=== PATIENT | female | born 1990 | race American Indian/Alaskan Native ===

== ENCOUNTER 2020-01-17 12:48 | Inpatient (IN) | payer SELFPAY ==
[2020-01-17] MEDS ORDERED: Sodium Chloride 0.9% 10 ML Syringe FLUSH PRN (14:12)
[2020-01-17] MEDS ORDERED: Misoprostol 200 MCG Tab PO PRN (14:12)
[2020-01-17] MEDS ORDERED: Lidocaine 1% 50 ML MDV INJECT PRN (14:12)
[2020-01-17] MEDS ORDERED: Carboprost Tromethamine 250 MCG/1 ML Amp IM PRN (14:12)
[2020-01-17] MEDS ORDERED: Tranexamic Acid 1,000 MG in Sodium Chloride 0.9% 100 ML IV PRN (14:12)
[2020-01-17] MEDS ORDERED: Terbutaline 1 MG/ML SDV SUBCUT PRN (14:12)
[2020-01-17] MEDS ORDERED: Sodium Chloride 0.9% 10 ML SDV IV PRN (14:12)
[2020-01-17] MEDS ORDERED: Methylergonovine 0.2 MG/1 ML Amp IM PRN (14:12)
[2020-01-17] MEDS ORDERED: Butorphanol 1 MG/ML SDV IVPUSH PRN (14:12)
[2020-01-17] MEDS ORDERED: Water For Irrigation,Sterile 1,000 ML Container IRR PRN (14:12)
[2020-01-17] MEDS ORDERED: Ondansetron 4 MG/2 ML SDV IVPUSH PRN (14:12)
[2020-01-17] MEDS ORDERED: Sodium Chloride 0.9% 2.5 ML Syringe FLUSH PRN (14:12)
[2020-01-17] MEDS ORDERED: Oxytocin/0.9 % Sodium Chloride 30 UNIT/500 ML BAG IV SCH ×2 (14:15)
[2020-01-17] MEDS ORDERED: Misoprostol 50 MCG (1/2 of 100 MCG) Tab PO ONE (14:19)
--- NOTE | 2020-01-17 16:40 | PCM.LDHP ---
L&D History of Present Illness - General Date of Service: 01/17/20 Admit Problem/Dx: Patient Status Order with Admit Dx/Problem 01/17/20 13:32 Patient Status [ADT] Routine 01/17/20 14:15 Patient Status [ADT] Routine Admission Diagnosis/Problem Admission Diagnosis/Problem 01/17/20 16:35 29yo EDC 01/14/2020 40 3/7wks. A+,RI, GBS neg. Comes today SROM at 0900 today clear fluid. 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: Social & Family History - Family History Family Medical History: Noncontributory - Tobacco Use Smoking Status *Q: Current Every Day Smoker Years of Tobacco use: 13 Packs/Tins Daily: 1 Second Hand Smoke Exposure: Yes - Caffeine Use Caffeine Use: Reports: Coffee - Recreational Drug Use Recreational Drug Use: No H&P Review of Systems - Review of Systems: Review Of Systems: See Below General: Reports: No Symptoms HEENT: Reports: No Symptoms Pulmonary: Reports: No Symptoms Cardiovascular: Reports: No Symptoms Gastrointestinal: Reports: No Symptoms Genitourinary: Reports: No Symptoms Musculoskeletal: Reports: No Symptoms Skin: Reports: No Symptoms Psychiatric: Reports: No Symptoms Neurological: Reports: No Symptoms Hematologic/Lymphatic: Reports: No Symptoms Immunologic: Reports: No Symptoms L&D Exam - Exam Exam: See Below - Vital Signs Weight: 124.738 kg - OB Specific Contraction Intensity: Mild Movement: Active Heart Tones: Present Heart Rate (FHR) Variability: Moderate (6-25 bmp) Presentation: Vertex Estimated Weight: 3700 - Moody Score Moody Score Cervix Position: Posterior Moody Score Consistency: Soft Moody Score Effacement: 51-70% Moody Score Dilation: 1-2 cm Moody Score Infant's Station: -2 Moody Score Total: 6 - Exam General: Alert, Oriented, Cooperative, Mild Distress HEENT: Hearing Intact Lungs: Clear to Auscultation, Normal Respiratory Effort Cardiovascular: Regular Rate, Regular Rhythm GI/Abdominal Exam: Soft, Non-Tender Rectal Exam: Deferred Genitourinary: Normal external exam, Normal bimanual exam, Cervical dilitation, Cervical fluid Back Exam: Normal Inspection, Full Range of Motion Extremities: Normal Inspection, Normal Range of Motion, Non-Tender, No Pedal Edema Skin: Warm, Dry, Intact Neurological: Cranial Nerves Intact, Strength Equal Bilateral, Normal Gait, Normal Speech, Normal Tone, Sensation Intact Psychiatric: Alert, Normal Affect, Normal Mood - Patient Data Lab Results Last 24 hrs: Laboratory Results - last 24 hr 01/17/20 01/17/20 01/17/20 Range/Units 13:43 14:35 14:35 WBC 9.32 (4.0-11.0) K/uL RBC 4.16 L (4.30-5.90) M/uL Hgb 12.5 (12.0-16.0) g/dL Hct 37.1 (36.0-46.0) % MCV 89.2 (80.0-98.0) fL MCH 30.0 (27.0-32.0) pg MCHC 33.7 (31.0-37.0) g/dL RDW Std Deviation 43.0 (28.0-62.0) fl RDW Coeff of Gibson 13 (11.0-15.0) % Plt Count 258 (150-400) K/uL MPV 11.30 (7.40-12.00) fL Nucleated RBC % 0.0 /100WBC Nucleated RBCs # 0 K/uL Membrane Rupture POSITIVE Blood Type A POSITIVE Antibody Screen NEGATIVE Result Diagrams: 01/17/20 14:35 - Problem List (1) Supervision of normal IUP (intrauterine ) in primigravida SNOMED Code(s): 51423481, 795408060, 257922309, [id number] ICD Code: Z34.00 - ENCNTR FOR SUPRVSN OF NORMAL FIRST , UNSP TRIMESTER Status: Acute Priority: High Current Visit: Yes Qualifiers: Trimester: third trimester Qualified Code(s): Z34.03 - Encounter for supervision of normal first , third trimester Problem List Initiated/Reviewed/Updated: Yes Orders Last 24hrs: Active Orders 24 hr Category Date Time Status Patient Status [ADT] Routine ADT 01/17/20 13:32 Active Patient Status [ADT] Routine ADT 01/17/20 14:15 Active Bedrest Bathroom Privileges [RC] ASDIRECTED Care 01/17/20 14:15 Active Communication Order [RC] ASDIRECTED Care 01/17/20 14:15 Active Communication Order [RC] ASDIRECTED Care 01/17/20 14:15 Active Communication Order [RC] ASDIRECTED Care 01/17/20 14:15 Active Heart Tones [RC] CONTINUOUS Care 01/17/20 14:15 Active Non Stress Test [RC] PER UNIT ROUTINE Care 01/17/20 13:32 Active Non Stress Test [RC] PER UNIT ROUTINE Care 01/17/20 14:15 Active May Shower [RC] ASDIRECTED Care 01/17/20 14:15 Active Notify Provider [RC] PRN Care 01/17/20 14:15 Active Notify Provider [RC] PRN Care 01/17/20 14:15 Active Notify Provider [RC] PRN Care 01/17/20 14:15 Active Notify Provider [RC] STAT Care 01/17/20 14:15 Active Oxygen Therapy [RC] ASDIRECTED Care 01/17/20 14:15 Active Up ad [place] [RC] ASDIRECTED Care 01/17/20 13:32 Active Up ad [place] [RC] ASDIRECTED Care 01/17/20 14:15 Active Vaginal Exam [RC] Click to Edit Care 01/17/20 13:32 Active Vaginal Exam [RC] PRN Care 01/17/20 14:15 Active Vaginal Exam [RC] PRN Care 01/17/20 14:15 Active Vital Signs [RC] PER UNIT ROUTINE Care 01/17/20 13:32 Active Vital Signs [RC] PER UNIT ROUTINE Care 01/17/20 14:15 Active Vital Signs [RC] PER UNIT ROUTINE Care 01/17/20 14:15 Active RPR (SYPHILIS SERO) W/ RFLX [REF] Routine Lab 01/17/20 14:35 Received Butorphanol [Stadol] Med 01/17/20 14:12 Active 1 mg IVPUSH Q1H PRN Carboprost Tromethamine [Hemabate DS] Med 01/17/20 14:12 Active 250 mcg IM ASDIRECTED PRN Lactated Ringers [Ringers, Lactated] 1,000 ml Med 01/17/20 14:15 Active IV ASDIRECTED Lidocaine 1% [Xylocaine 1%] Med 01/17/20 14:12 Active 50 ml INJECT ONETIME PRN Methylergonovine [Methergine] Med 01/17/20 14:12 Active 0.2 mg IM ASDIRECTED PRN Nalbuphine [Nubain] Med 01/17/20 14:12 Active 10 mg IVPUSH Q1H PRN Ondansetron [Zofran] Med 01/17/20 14:12 Active 4 mg IVPUSH Q4H PRN Oxytocin/0.9 % Sodium Chloride [Oxytocin 30 Unit/500 ML Med 01/17/20 14:15 Active -NS] 30 unit in 500 ml IV TITRATE Oxytocin/0.9 % Sodium Chloride [Oxytocin 30 Unit/500 ML Med 01/17/20 14:15 Active -NS] 30 unit in 500 ml IV TITRATE Sodium Chloride 0.9% [Normal Saline] Med 01/17/20 14:12 Active 10 ml IV ASDIRECTED PRN Sodium Chloride 0.9% [Saline Flush] Med 01/17/20 14:12 Active 10 ml FLUSH ASDIRECTED PRN Sodium Chloride 0.9% [Saline Flush] Med 01/17/20 14:12 Active 2.5 ml FLUSH ASDIRECTED PRN Terbutaline [Brethine] Med 01/17/20 14:12 Active 0.25 mg SUBCUT ASDIRECTED PRN Tranexamic Acid [Cyklokapron] 1,000 mg Med 01/17/20 14:12 Active Sodium Chloride 0.9% [Normal Saline] 100 ml IV ONETIME Water For Irrigation,Sterile [Sterile Water for Med 01/17/20 14:12 Active Irrigation] 1,000 ml IRR ASDIRECTED PRN miSOPROStoL [Cytotec] Med 01/17/20 14:12 Active 200 mcg PO ONETIME PRN Scalp Electrode [WOMSER] Per Unit Routine Oth 01/17/20 14:15 Ordered Medication Administration Instruction [OM.PC] Q3H Oth 01/17/20 14:15 Ordered Peripheral IV Insertion Adult [OM.PC] Routine Oth 01/17/20 14:15 Ordered Resuscitation Status Routine Resus Stat 01/17/20 13:32 Ordered Medication Orders Butorphanol Tartrate (Stadol) 1 mg IVPUSH Q1H PRN PRN Reason: Pain Carboprost Tromethamine (Hemabate Ds) 250 mcg IM ASDIRECTED PRN PRN Reason: Post Hemorrhage Tranexamic Acid 1,000 mg/ (Sodium Chloride) 110 mls @ 660 mls/hr IV ONETIME PRN PRN Reason: Bleeding Oxytocin/Sodium Chloride (Oxytocin 30 Unit/500 Ml-Ns) 30 unit in 500 mls @ 2 mls/hr IV TITRATE DONNA; Protocol Lactated Ringer's (Ringers, Lactated) 1,000 mls @ 150 mls/hr IV ASDIRECTED DONNA Oxytocin/Sodium Chloride (Oxytocin 30 Unit/500 Ml-Ns) 30 unit in 500 mls @ 999 mls/hr IV TITRATE DONNA Lidocaine HCl (Xylocaine 1%) 50 ml INJECT ONETIME PRN PRN Reason: Laceration repair Methylergonovine Maleate (Methergine) 0.2 mg IM ASDIRECTED PRN PRN Reason: Post Hemorrhage Misoprostol (Cytotec) 200 mcg PO ONETIME PRN PRN Reason: Post Hemorrhage Nalbuphine HCl (Nubain) 10 mg IVPUSH Q1H PRN PRN Reason: Pain (severe 7-10) Ondansetron HCl (Zofran) 4 mg IVPUSH Q4H PRN PRN Reason: Nausea/Vomiting Sodium Chloride (Saline Flush) 10 ml FLUSH ASDIRECTED PRN PRN Reason: Keep Vein Open Sodium Chloride (Saline Flush) 2.5 ml FLUSH ASDIRECTED PRN PRN Reason: Keep Vein Open Sodium Chloride (Normal Saline) 10 ml IV ASDIRECTED PRN PRN Reason: IV Use Sterile Water (Sterile Water For Irrigation) 1,000 ml IRR ASDIRECTED PRN PRN Reason: delivery Terbutaline Sulfate (Brethine) 0.25 mg SUBCUT ASDIRECTED PRN PRN Reason: Tacysystole Assessment/Plan Comment:: SROM A: 29yo EDC 01/14/2020 40 3/7wks. A+,RI, GBS neg. Comes today SROM at 0900 today clear fluid. P: Admit, cytotec to pitocin, pain meds prn, Anticipate . Dr Bonner updated.
[2020-01-18] MEDS: Lactated Ringers 1,000 ML IV SCH ×3 (01:07→12:34)
[2020-01-18] MEDS: Nalbuphine 10 MG/1 ML Vial IVPUSH PRN ×2 (07:15→09:49)
[2020-01-18] MEDS ORDERED: fentaNYL 100 MCG/2 ML SDV ONE ×2 (11:18→12:19)
[2020-01-18] MEDS ORDERED: Ropivacaine HCl/PF 100 ML ONE (11:19)
[2020-01-18] MEDS ORDERED: Ropivacaine 0.2% PF 2 MG/ML 20 ML SDV ONE ×2 (11:19→12:20)
--- NOTE | 2020-01-18 12:27 | PCM.PREANE ---
Preanesthetic Assessment - Procedure Proposed Procedure: REBECA - Anesthesia/Transfusion/Family Hx Anesthesia History: Prior Anesthesia Without Reaction Family History of Anesthesia Reaction: No Transfusion History: No Prior Transfusion(s) Intubation History: Unknown - Review of Systems General: No Symptoms Pulmonary: No Symptoms Cardiovascular: No Symptoms Gastrointestinal: No Symptoms Neurological: No Symptoms Other: Reports: Anxiety - Physical Assessment Height: 1.68 m Weight: 124.738 kg ASA Class: 3 Mental Status: Alert & Oriented x3 Airway Class: Mallampati = 2 Dentition: Reports: Normal Dentition Thyro-Mental Finger Breadths: 3 Mouth Opening Finger Breadths: 3 ROM/Head Extension: Full Lungs: Clear to Auscultation Cardiovascular: Regular Rate - Lab Values: Laboratory Last Values WBC 9.32 K/uL (4.0-11.0) 01/17/20 14:35 RBC 4.16 M/uL (4.30-5.90) L 01/17/20 14:35 Hgb 12.5 g/dL (12.0-16.0) 01/17/20 14:35 Hct 37.1 % (36.0-46.0) 01/17/20 14:35 MCV 89.2 fL (80.0-98.0) 01/17/20 14:35 MCH 30.0 pg (27.0-32.0) 01/17/20 14:35 MCHC 33.7 g/dL (31.0-37.0) 01/17/20 14:35 RDW Std Deviation 43.0 fl (28.0-62.0) 01/17/20 14:35 RDW Coeff of Gibson 13 % (11.0-15.0) 01/17/20 14:35 Plt Count 258 K/uL (150-400) 01/17/20 14:35 MPV 11.30 fL (7.40-12.00) 01/17/20 14:35 Nucleated RBC % 0.0 /100WBC 01/17/20 14:35 Nucleated RBCs # 0 K/uL 01/17/20 14:35 Membrane Rupture POSITIVE 01/17/20 13:43 Blood Type A POSITIVE 01/17/20 14:35 Antibody Screen NEGATIVE 01/17/20 14:35 - Allergies Allergies/Adverse Reactions: Allergies Allergy/AdvReac Type Severity Reaction Status Date / Time No Known Allergies Allergy Verified 01/17/20 13:30 - Blood Blood Available: No Product(s) Available: None - Anesthesia Plan Pre-Op Medication Ordered: None - Acknowledgements Anesthesia Type Planned: Epidural Pt an Appropriate Candidate for the Planned Anesthesia: Yes Alternatives and Risks of Anesthesia Discussed w Pt/Guardian: Yes Pt/Guardian Understands and Agrees with Anesthesia Plan: Yes Additional Comments: Discussed. Landmarks very difficult to feel. Patient aware of potential difficulty. Acceptable candidate. 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 Smoking Status *Q: Current Every Day Smoker Tobacco Use Within Last Twelve Months: Cigarettes Second Hand Smoke Exposure: Yes Recreational Drug Use History: No - CURRENT (IN HOUSE) MEDS Current Meds: Current Medications Butorphanol Tartrate (Stadol) 1 mg IVPUSH Q1H PRN PRN Reason: Pain Carboprost Tromethamine (Hemabate Ds) 250 mcg IM ASDIRECTED PRN PRN Reason: Post Hemorrhage Tranexamic Acid 1,000 mg/ (Sodium Chloride) 110 mls @ 660 mls/hr IV ONETIME PRN PRN Reason: Bleeding Oxytocin/Sodium Chloride (Oxytocin 30 Unit/500 Ml-Ns) 30 unit in 500 mls @ 2 mls/hr IV TITRATE DONNA; Protocol Last Titration: 01/18/20 11:50 Dose: 10 munits/min, 10 mls/hr Lactated Ringer's (Ringers, Lactated) 1,000 mls @ 150 mls/hr IV ASDIRECTED DONNA Last Admin: 01/18/20 11:20 Dose: 150 mls/hr Oxytocin/Sodium Chloride (Oxytocin 30 Unit/500 Ml-Ns) 30 unit in 500 mls @ 999 mls/hr IV TITRATE DONNA Lidocaine HCl (Xylocaine 1%) 50 ml INJECT ONETIME PRN PRN Reason: Laceration repair Methylergonovine Maleate (Methergine) 0.2 mg IM ASDIRECTED PRN PRN Reason: Post Hemorrhage Misoprostol (Cytotec) 200 mcg PO ONETIME PRN PRN Reason: Post Hemorrhage Nalbuphine HCl (Nubain) 10 mg IVPUSH Q1H PRN PRN Reason: Pain (severe 7-10) Last Admin: 01/18/20 09:49 Dose: 10 mg Ondansetron HCl (Zofran) 4 mg IVPUSH Q4H PRN PRN Reason: Nausea/Vomiting Sodium Chloride (Saline Flush) 10 ml FLUSH ASDIRECTED PRN PRN Reason: Keep Vein Open Sodium Chloride (Saline Flush) 2.5 ml FLUSH ASDIRECTED PRN PRN Reason: Keep Vein Open Sodium Chloride (Normal Saline) 10 ml IV ASDIRECTED PRN PRN Reason: IV Use Sterile Water (Sterile Water For Irrigation) 1,000 ml IRR ASDIRECTED PRN PRN Reason: delivery Terbutaline Sulfate (Brethine) 0.25 mg SUBCUT ASDIRECTED PRN PRN Reason: Tacysystole Discontinued Medications Fentanyl (Sublimaze) Confirm Administered Dose 100 mcg .ROUTE .STK-MED ONE Stop: 01/18/20 11:19 Ropivacaine (Naropin 0.2%) Confirm Administered Dose 100 mls @ as directed .ROUTE .STK-MED ONE Stop: 01/18/20 11:20 Misoprostol (Cytotec) 50 mcg PO ONETIME ONE Stop: 01/17/20 14:20 Last Admin: 01/17/20 14:54 Dose: 50 mcg Ropivacaine (Naropin 0.2%) Confirm Administered Dose 20 ml .ROUTE .STK-MED ONE Stop: 01/18/20 11:20
--- NOTE | 2020-01-18 13:12 | PCM.SN ---
- Free Text/Narrative Note: Requested for REBECA, , 6cm, active labor, pain 10/10. Discussed, ? answered, permit signed. Fluid bolus in-progress. Epidural at L3-4. Pass 1: heme. Pass 2: Good DILEEP x2, unable to thread catheter. Pass 3: Good DILEEP with air/saline. Cath to 8cm. Occlusive drsg. TEST: negative. Bolus given: 8ml 0.2% Naropin + 100mcg fentanyl. Some relief on left side, essentially none in R groin area. Additional 3ml bolus given, pump on. No improvement. Offered to replace. Patient wished it to be replaced. Epidural at L2-3. Spaced ID'd on first pass with saline/air mix. Reconfirmed with 3ml saline. Cath to 8cm without issues. TEST dose: NEGATIVE. Occlusive drsg. Bolus with 8ml 0.2% Naropin + Fentanyl 100mcg over 8 minutes. Pain 1/10 post. Infusion on 15 minutes post bolus. VSS. Doing well.
[2020-01-18] MEDS ORDERED: Ampicillin 2 GM in Sodium Chloride 0.9% 100 ML IV ONE (14:41)
[2020-01-18] MEDS ORDERED: Ampicillin 1 GM in Sodium Chloride 0.9% 50 ML IV SCH (19:00)
[2020-01-18] MEDS ORDERED: Ibuprofen 400 MG Tab PO PRN (20:23)
[2020-01-18] MEDS ORDERED: Witch Hazel Medicated Pads 40/Jar TOP PRN (20:23)
[2020-01-18] MEDS ORDERED: Lanolin 100% Cream 7 GM Tube TOP PRN (20:23)
[2020-01-18] MEDS ORDERED: Acetaminophen 500 MG Tab PO PRN (20:23)
[2020-01-18] MEDS ORDERED: Bisacodyl 10 MG Supp RECTAL PRN (20:23)
[2020-01-18] MEDS ORDERED: Docusate Sodium 100 MG Cap PO PRN (20:23)
[2020-01-18] MEDS ORDERED: Benzocaine/Menthol 20%-0.5% Spray 78 GM Cannister TOP PRN (20:23)
[2020-01-18] MEDS ORDERED: oxyCODONE 5 MG Tab PO PRN (20:23)
[2020-01-18] MEDS: Ibuprofen 800 MG Tab PO PRN (20:37)
[2020-01-18] MEDS: Acetaminophen 500 MG Tab PO PRN (20:37)
--- NOTE | 2020-01-18 21:10 | OR ---
SURGEON: Joel Bonner MD DATE OF PROCEDURE: Ms. Mg is a primigravida. 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 She is admitted with spontaneous rupture of the membranes. At the time of admission, she was dilated 2 to 3 cm. The patient had responded to the Cytotec and Pitocin, and she progressed rather slowly. She had epidural anesthesia for labor analgesia. She later on required to place an IUPC to titrate the Pitocin adequately to have adequate contraction. However, when she had 6 cm, she rather progressed rapidly to complete, vertex, +0, and she commenced pushing. She brought the baby to a +2 position, and because of prolonged labor and the patient was exhausted and the epidural was making her pushing ineffective, I was consulted to evaluate the patient for vacuum extraction. Upon my arrival, the vital signs were stable and the heart rate was category I. Examination revealed the patient was complete-complete, vertex, and at +2 station and in my judgment deemed to be vacuumable. So after consulting with the patient and explaining the vacuum extraction to her, we proceeded to place the [place] vacuum extractions, and with the patient pushing and me pulling, we were able to guide the head down. However, I needed to do midline episiotomy to aid in the delivery. The vacuum extraction was successful. Day Trader had attended the delivery. However, when the fetus was delivered, cried immediately, and the placenta delivered spontaneous, complete, and intact and the midline episiotomy repaired with 3-0 Vicryl in layers without any problem. Estimated blood loss was 350 to 400 mL. heart rate was category 1 through the entire process of labor and delivery. There was no complication in the labor and the delivery process. HETAL / SUZANNE /[id number]
--- NOTE | 2020-01-19 07:14 | PCM48HPAN ---
Post Anesthesia Note - EVALUATION WITHIN 48HRS OF ANESTHETIC Vital Signs in Normal Range: Yes Patient Participated in Evaluation: Yes Respiratory Function Stable: Yes Airway Patent: Yes Cardiovascular Function Stable: Yes Hydration Status Stable: Yes Pain Control Satisfactory: Yes Nausea and Vomiting Control Satisfactory: Yes Mental Status Recovered: Yes Vital Signs: Last Vital Signs Temp 36.8 C 01/19/20 04:41 Pulse 111 H 01/19/20 04:41 Resp 15 01/19/20 04:41 BP 110/73 01/19/20 04:41 Pulse Ox 98 01/19/20 04:41
[2020-01-19] MEDS: Ibuprofen 800 MG Tab PO PRN ×2 (08:06→15:07)
[2020-01-19] MEDS: Acetaminophen 500 MG Tab PO PRN ×2 (08:07→15:09)
--- NOTE | 2020-01-19 08:23 | PCM.PNPP ---
- General Info Date of Service: 01/19/20 Admission Dx/Problem (Free Text): Patient Status Order with Admit Dx/Problem 01/17/20 13:32 Patient Status [ADT] Routine 01/17/20 14:15 Patient Status [ADT] Routine Admission Diagnosis/Problem Admission Diagnosis/Problem 01/17/20 16:35 29yo EDC 01/14/2020 40 3/7wks. A+,RI, GBS neg. Comes today SROM at 0900 today clear fluid. Functional Status: Reports: Pain Controlled - Review of Systems General: Reports: No Symptoms HEENT: Reports: No Symptoms Pulmonary: Reports: No Symptoms Cardiovascular: Reports: No Symptoms Gastrointestinal: Reports: No Symptoms Genitourinary: Reports: No Symptoms Musculoskeletal: Reports: No Symptoms Skin: Reports: No Symptoms Neurological: Reports: No Symptoms Psychiatric: Reports: No Symptoms - General Info Date of Service: 01/19/20 - Patient Data Vital Signs - Most Recent: Last Vital Signs Temp 98.3 F 01/19/20 04:41 Pulse 111 H 01/19/20 04:41 Resp 15 01/19/20 04:41 BP 110/73 01/19/20 04:41 Pulse Ox 98 01/19/20 04:41 Weight - Most Recent: 275 lb Med Orders - Current: Current Medications Acetaminophen (Tylenol Extra Strength) 500 mg PO Q4H PRN PRN Reason: Pain Acetaminophen (Tylenol Extra Strength) 1,000 mg PO Q4H PRN PRN Reason: Pain Last Admin: 01/19/20 08:07 Dose: 1,000 mg Benzocaine/Menthol (Dermoplast Pain Relief 20%-0.5% [place]) 78 gm TOP ASDIRECTED PRN PRN Reason: Perineal Comfort Measure Bisacodyl (Dulcolax) 10 mg RECTAL ONETIME PRN PRN Reason: Constipation Docusate Sodium (Colace) 100 mg PO BID PRN PRN Reason: Constipation Last Admin: 01/19/20 08:06 Dose: 100 mg Emollient Ointment (Lansinoh Hpa) 0 gm TOP ASDIRECTED PRN PRN Reason: Sore Nipples Last Admin: 01/19/20 08:07 Dose: 7 gram Ibuprofen (Motrin) 400 mg PO Q4H PRN PRN Reason: Pain Ibuprofen (Motrin) 800 mg PO Q6H PRN PRN Reason: Pain Last Admin: 01/19/20 08:06 Dose: 800 mg Oxycodone HCl (Oxycodone) 5 mg PO Q2H PRN PRN Reason: Pain Witch Candice (Tucks) 1 pad TOP ASDIRECTED PRN PRN Reason: comfort care Last Admin: 01/19/20 08:08 Dose: 1 pack Discontinued Medications Butorphanol Tartrate (Stadol) 1 mg IVPUSH Q1H PRN PRN Reason: Pain Carboprost Tromethamine (Hemabate Ds) 250 mcg IM ASDIRECTED PRN PRN Reason: Post Hemorrhage Fentanyl (Sublimaze) Confirm Administered Dose 100 mcg .ROUTE .STK-MED ONE Stop: 01/18/20 11:19 Fentanyl (Sublimaze) Confirm Administered Dose 100 mcg .ROUTE .STK-MED ONE Stop: 01/18/20 12:20 Tranexamic Acid 1,000 mg/ (Sodium Chloride) 110 mls @ 660 mls/hr IV ONETIME PRN PRN Reason: Bleeding Oxytocin/Sodium Chloride (Oxytocin 30 Unit/500 Ml-Ns) 30 unit in 500 mls @ 2 mls/hr IV TITRATE DONNA; Protocol Last Titration: 01/18/20 20:17 Dose: 999 munits/min, 999 mls/hr Lactated Ringer's (Ringers, Lactated) 1,000 mls @ 150 mls/hr IV ASDIRECTED DONNA Last Admin: 01/18/20 12:34 Dose: 150 mls/hr Oxytocin/Sodium Chloride (Oxytocin 30 Unit/500 Ml-Ns) 30 unit in 500 mls @ 999 mls/hr IV TITRATE DONNA Ropivacaine (Naropin 0.2%) Confirm Administered Dose 100 mls @ as directed .ROUTE .STK-MED ONE Stop: 01/18/20 11:20 Ampicillin Sodium 2 gm/ Sodium (Chloride) 100 mls @ 200 mls/hr IV ONETIME ONE Stop: 01/18/20 15:10 Last Admin: 01/18/20 15:15 Dose: 200 mls/hr Ampicillin Sodium 1 gm/ Sodium (Chloride) 50 mls @ 100 mls/hr IV Q4H DONNA Last Admin: 01/18/20 19:00 Dose: 100 mls/hr Lidocaine HCl (Xylocaine 1%) 50 ml INJECT ONETIME PRN PRN Reason: Laceration repair Methylergonovine Maleate (Methergine) 0.2 mg IM ASDIRECTED PRN PRN Reason: Post Hemorrhage Misoprostol (Cytotec) 200 mcg PO ONETIME PRN PRN Reason: Post Hemorrhage Misoprostol (Cytotec) 50 mcg PO ONETIME ONE Stop: 01/17/20 14:20 Last Admin: 01/17/20 14:54 Dose: 50 mcg Nalbuphine HCl (Nubain) 10 mg IVPUSH Q1H PRN PRN Reason: Pain (severe 7-10) Last Admin: 01/18/20 09:49 Dose: 10 mg Ondansetron HCl (Zofran) 4 mg IVPUSH Q4H PRN PRN Reason: Nausea/Vomiting Ropivacaine (Naropin 0.2%) Confirm Administered Dose 20 ml .ROUTE .STK-MED ONE Stop: 01/18/20 11:20 Ropivacaine (Naropin 0.2%) Confirm Administered Dose 20 ml .ROUTE .STK-MED ONE Stop: 01/18/20 12:21 Sodium Chloride (Saline Flush) 10 ml FLUSH ASDIRECTED PRN PRN Reason: Keep Vein Open Sodium Chloride (Saline Flush) 2.5 ml FLUSH ASDIRECTED PRN PRN Reason: Keep Vein Open Sodium Chloride (Normal Saline) 10 ml IV ASDIRECTED PRN PRN Reason: IV Use Sterile Water (Sterile Water For Irrigation) 1,000 ml IRR ASDIRECTED PRN PRN Reason: delivery Terbutaline Sulfate (Brethine) 0.25 mg SUBCUT ASDIRECTED PRN PRN Reason: Tacysystole - Infant Interaction Disposition, : in Room with Family Feeding: Breastfed ; Nursed Well Support Person: Sister - Recovery Exam Fundal Tone: Firm Fundal Level: At Umbilicus Fundal Placement: Midline Lochia Amount: Scant Lochia Color: Rubra/Red Episiotomy/Laceration: Approximated Bladder Status: Nonpalpable Urinary Elimination: Voided - Exam General: Alert, Oriented, Cooperative, No Acute Distress Lungs: Clear to Auscultation, Normal Respiratory Effort Cardiovascular: Regular Rate, Regular Rhythm GI/Abdominal Exam: Soft, Non-Tender Extremities: Normal Range of Motion, Non-Tender, Normal Capillary Refill Skin: Warm, Dry, Intact Wound/Incisions: Healing Well Neurological: No New Focal Deficit, Normal Gait, Normal Speech, Normal Tone, Strength Equal Bilateral, Sensation Intact Psy/Mental Status: Alert, Normal Affect, Normal Mood - Problem List & Annotations (1) Vacuum-assisted vaginal delivery SNOMED Code(s): 61314546078700478 Code(s): Z37.9 - OUTCOME OF DELIVERY, UNSPECIFIED Status: Acute Priority : High Current Visit: Yes - Problem List Review Problem List Initiated/Reviewed/Updated: Yes - Plan Plan:: SROM A: 29yo EDC 01/14/2020 40 3/7wks. A+,RI, GBS neg. Comes today SROM at 0900 today clear fluid. P: Admit, cytotec to pitocin, pain meds prn, Anticipate . Dr Bonner updated. PP Day 1 A: well, ambulating and urinating well, small lochia rubra, pain well-controlled P: Routine plan of care, Dr. Bonner updated
--- NOTE | 2020-01-19 15:53 | PCM.DCSUM1 ---
Discharge Summary - Hospital Course Free Text/Narrative:: Discharge home with baby. Follow up in 6 weeks for routine visit. Diagnosis: Stroke: No Modified Trigg Scale: No Symptoms at All Modified Trigg Scale Score: 0 - Discharge Data Discharge Date: 01/19/20 Discharge Disposition: Home, Self-Care 01 Condition: Good - Referral to Home Health Primary Care Physician: PCP None - Discharge Diagnosis/Problem(s) (1) Vacuum-assisted vaginal delivery SNOMED Code(s): [id number] ICD Code: Z37.9 - OUTCOME OF DELIVERY, UNSPECIFIED Status: Acute Priority : High Current Visit: Yes - Patient Instructions Diet: Regular Diet as Tolerated, Drink 8-10+ Glasses/Day Activity: As Tolerated, No Strenuous Activities, Rest and Relax Today Driving: May Drive Today Showering/Bathing: May Shower Wound/Incision Care: Keep Operative Site/Wound Site Clean and Dry Notify Provider of: Fever, Increased Pain, Swelling and Redness, Drainage, Nausea and/or Vomiting - Discharge Plan *PRESCRIPTION DRUG MONITORING PROGRAM REVIEWED*: Not Applicable *COPY OF PRESCRIPTION DRUG MONITORING REPORT IN PATIENT VERONICA: Not Applicable Prescriptions/Med Rec: Ibuprofen [Motrin] 800 mg PO Q6H PRN #30 tablet PRN Reason: Pain Home Medications: Home Meds Ibuprofen [Motrin] 800 mg PO Q6H PRN #30 tablet 01/19/20 [Rx] Oxygen Therapy Mode: Room Air Referrals: [facility] [Outside] Cordelia Hilton CNM [Mid-] - 03/01/20 1:00 pm - Discharge Summary/Plan Comment DC Time >30 min.: Yes - General Info Date of Service: 01/19/20 Admission Dx/Problem (Free Text: Patient Status Order with Admit Dx/Problem 01/17/20 13:32 Patient Status [ADT] Routine 01/17/20 14:15 Patient Status [ADT] Routine Admission Diagnosis/Problem Admission Diagnosis/Problem 01/17/20 16:35 29yo EDC 01/14/2020 40 3/7wks. A+,RI, GBS neg. Comes today SROM at 0900 today clear fluid. Functional Status: Reports: Pain Controlled, Tolerating Diet, Ambulating, Urinating - Review of Systems General: Reports: No Symptoms HEENT: Reports: No Symptoms Pulmonary: Reports: No Symptoms Cardiovascular: Reports: No Symptoms Gastrointestinal: Reports: No Symptoms Genitourinary: Reports: No Symptoms Musculoskeletal: Reports: No Symptoms Skin: Reports: No Symptoms Neurological: Reports: No Symptoms Psychiatric: Reports: No Symptoms - Patient Data Vitals - Most Recent: Last Vital Signs Temp 97.4 F 01/19/20 07:50 Pulse 111 H 01/19/20 04:41 Resp 17 01/19/20 07:50 BP 104/60 01/19/20 07:50 Pulse Ox 97 01/19/20 07:50 Weight - Most Recent: 275 lb Lab Results - Last 24 hrs: Laboratory Results - last 24 hr 01/17/20 Range/Units 14:35 RPR Non-Reac (Non-Reac) Med Orders - Current: Current Medications Acetaminophen (Tylenol Extra Strength) 500 mg PO Q4H PRN PRN Reason: Pain Acetaminophen (Tylenol Extra Strength) 1,000 mg PO Q4H PRN PRN Reason: Pain Last Admin: 01/19/20 15:09 Dose: 1,000 mg Benzocaine/Menthol (Dermoplast Pain Relief 20%-0.5% [place]) 78 gm TOP ASDIRECTED PRN PRN Reason: Perineal Comfort Measure Bisacodyl (Dulcolax) 10 mg RECTAL ONETIME PRN PRN Reason: Constipation Docusate Sodium (Colace) 100 mg PO BID PRN PRN Reason: Constipation Last Admin: 01/19/20 08:06 Dose: 100 mg Emollient Ointment (Lansinoh Hpa) 0 gm TOP ASDIRECTED PRN PRN Reason: Sore Nipples Last Admin: 01/19/20 08:07 Dose: 7 gram Ibuprofen (Motrin) 400 mg PO Q4H PRN PRN Reason: Pain Ibuprofen (Motrin) 800 mg PO Q6H PRN PRN Reason: Pain Last Admin: 01/19/20 15:07 Dose: 800 mg Oxycodone HCl (Oxycodone) 5 mg PO Q2H PRN PRN Reason: Pain Witch Candice (Tucks) 1 pad TOP ASDIRECTED PRN PRN Reason: comfort care Last Admin: 01/19/20 08:08 Dose: 1 pack Discontinued Medications Butorphanol Tartrate (Stadol) 1 mg IVPUSH Q1H PRN PRN Reason: Pain Carboprost Tromethamine (Hemabate Ds) 250 mcg IM ASDIRECTED PRN PRN Reason: Post Hemorrhage Fentanyl (Sublimaze) Confirm Administered Dose 100 mcg .ROUTE .STK-MED ONE Stop: 01/18/20 11:19 Fentanyl (Sublimaze) Confirm Administered Dose 100 mcg .ROUTE .STK-MED ONE Stop: 01/18/20 12:20 Tranexamic Acid 1,000 mg/ (Sodium Chloride) 110 mls @ 660 mls/hr IV ONETIME PRN PRN Reason: Bleeding Oxytocin/Sodium Chloride (Oxytocin 30 Unit/500 Ml-Ns) 30 unit in 500 mls @ 2 mls/hr IV TITRATE DONNA; Protocol Last Titration: 01/18/20 20:17 Dose: 999 munits/min, 999 mls/hr Lactated Ringer's (Ringers, Lactated) 1,000 mls @ 150 mls/hr IV ASDIRECTED DONNA Last Admin: 01/18/20 12:34 Dose: 150 mls/hr Oxytocin/Sodium Chloride (Oxytocin 30 Unit/500 Ml-Ns) 30 unit in 500 mls @ 999 mls/hr IV TITRATE DONNA Ropivacaine (Naropin 0.2%) Confirm Administered Dose 100 mls @ as directed .ROUTE .STK-MED ONE Stop: 01/18/20 11:20 Ampicillin Sodium 2 gm/ Sodium (Chloride) 100 mls @ 200 mls/hr IV ONETIME ONE Stop: 01/18/20 15:10 Last Admin: 01/18/20 15:15 Dose: 200 mls/hr Ampicillin Sodium 1 gm/ Sodium (Chloride) 50 mls @ 100 mls/hr IV Q4H [facility] Last Admin: 01/18/20 19:00 Dose: 100 mls/hr Lidocaine HCl (Xylocaine 1%) 50 ml INJECT ONETIME PRN PRN Reason: Laceration repair Methylergonovine Maleate (Methergine) 0.2 mg IM ASDIRECTED PRN PRN Reason: Post Hemorrhage Misoprostol (Cytotec) 200 mcg PO ONETIME PRN PRN Reason: Post Hemorrhage Misoprostol (Cytotec) 50 mcg PO ONETIME ONE Stop: 01/17/20 14:20 Last Admin: 01/17/20 14:54 Dose: 50 mcg Nalbuphine HCl (Nubain) 10 mg IVPUSH Q1H PRN PRN Reason: Pain (severe 7-10) Last Admin: 01/18/20 09:49 Dose: 10 mg Ondansetron HCl (Zofran) 4 mg IVPUSH Q4H PRN PRN Reason: Nausea/Vomiting Ropivacaine (Naropin 0.2%) Confirm Administered Dose 20 ml .ROUTE .STK-MED ONE Stop: 01/18/20 11:20 Ropivacaine (Naropin 0.2%) Confirm Administered Dose 20 ml .ROUTE .STK-MED ONE Stop: 01/18/20 12:21 Sodium Chloride (Saline Flush) 10 ml FLUSH ASDIRECTED PRN PRN Reason: Keep Vein Open Sodium Chloride (Saline Flush) 2.5 ml FLUSH ASDIRECTED PRN PRN Reason: Keep Vein Open Sodium Chloride (Normal Saline) 10 ml IV ASDIRECTED PRN PRN Reason: IV Use Sterile Water (Sterile Water For Irrigation) 1,000 ml IRR ASDIRECTED PRN PRN Reason: delivery Terbutaline Sulfate (Brethine) 0.25 mg SUBCUT ASDIRECTED PRN PRN Reason: Tacysystole - Exam General: Reports: Alert, Oriented, Cooperative, No Acute Distress Lungs: Reports: Normal Respiratory Effort GI/Abdominal Exam: Soft, Non-Tender (Female) Exam: Deferred Rectal (Female) Exam: Deferred Back Exam: Reports: Normal Inspection, Full Range of Motion Extremities: Normal Inspection, Normal Range of Motion, Non-Tender, Normal Capillary Refill Skin: Reports: Warm, Dry, Intact Wound/Incisions: Reports: Healing Well Neurological: Reports: No New Focal Deficit, Normal Gait, Normal Speech, Normal Tone, Sensation Intact Psy/Mental Status: Reports: Alert, Normal Affect, Normal Mood
== END 2020-01-19 23:25 | disposition home or self-care (01) | DRG 807 ==
LOC: MW.OBCHECK 12:48 → MW.OB 12:49 → MW.OBCHECK 14:23 → OBSVTOIN 01-18 20:25 → MW.OB 01-18 23:00
PROVIDERS: ADMIT Obstetrics & Gynecology; ATTEND Obstetrics & Gynecology
PROC: 3E0R3BZ Introduction of Anesthetic Agent into Spinal Canal, Percutaneous Approach (ICD-10-PCS; principal; 2020-01-19)
PROC: 10D07Z6 Extraction of Products of Conception, Vacuum, Via Natural or Artificial Opening (ICD-10-PCS; 2020-01-19)
PROC: 00HU33Z Insertion of Infusion Device into Spinal Canal, Percutaneous Approach (ICD-10-PCS; 2020-01-19)
PROC: 10H07YZ Insertion of Other Device into Products of Conception, Via Natural or Artificial Opening (ICD-10-PCS; 2020-01-19)
PROC: 0W8NXZZ Division of Female Perineum, External Approach (ICD-10-PCS; 2020-01-19)
DX: O48.0 Post-term pregnancy (principal); Z37.0 Single live birth; Z3A.40 40 weeks gestation of pregnancy; O99.334 Smoking (tobacco) complicating childbirth; F17.210 Nicotine dependence, cigarettes, uncomplicated
CPT/HCPCS: 01967; 36415; 51702; 59025; 59409; 84112; 85027; 86592; 86593; 86850; 86900; 86901; A9270-GY; J0290; J2300; J2590; J7050; J7120

== ENCOUNTER 2022-02-26 21:45 | Emergency (ER) | payer OTHER ==
[2022-02-26] MEDS ORDERED: Diphtheria,Pertussis(Acell),Tetanus Vaccine 0.5 ML Syringe IM ONE (22:32)
[2022-02-26] MEDS ORDERED: Lidocaine 1% 5 ML VIAL INJECT ONE (22:33)
== END 2022-02-26 23:53 | disposition home or self-care (01) ==
LOC: MW.ED 21:45
DX: S61.412A Laceration without foreign body of left hand, initial encounter (principal); Z72.0 Tobacco use; Z86.16 Personal history of COVID-19; W26.8XXA Contact with other sharp object(s), not elsewhere classified, initial encounter; Y93.E8 Activity, other personal hygiene
CPT/HCPCS: 12002; 73130-26-LT; 73130-LT; 99282; 99283-25

== ENCOUNTER 2025-02-18 18:16 | Emergency (ER) | payer SELFPAY | END 2025-02-18 22:00 | disposition home or self-care (01) | LOC: MW.ED 18:16 | DX: S82.441A Displaced spiral fracture of shaft of right fibula, initial encounter for closed fracture (principal); X50.1XXA Overexertion from prolonged static or awkward postures, initial encounter | CPT/HCPCS: 73610-26-RT; 73610-RT; 99283 ==